=== PATIENT | male | born 1950 | race Caucasian/White ===

== ENCOUNTER 2024-11-29 11:30 | Inpatient (IN) | payer OTHER ==
[2024-11-29 11:58] LABS: HEMATOCRIT 49.2 % (40.0-54.0); HEMOGLOBIN 16.8 g/dL (13.0-18.0); MEAN CORPUSCULAR HEMOGLOBIN 30.5 pg (27.0-32.0); MEAN CORPUSCULAR HGB CONC 34.1 g/dL (31.0-35.0); MEAN PLATELET VOLUME 9.8 fL (6.0-10.0); RED BLOOD CELL COUNT 5.51 M/uL (4.50-6.50); RED CELL DISTRIBUTION WIDTH 14.3 % (11.0-16.0)
[2024-11-29 12:11] LABS: ANION GAP 15.9 mmol/L (5.0-15.0); BLOOD UREA NITROGEN,BUN 29 mg/dL (8-26); BUN/CREATININE RATIO 18.2 (6-25); CALCIUM 9.2 mg/dL (8.5-10.1); CARBON DIOXIDE,CO2 26.3 mmol/L (21.0-32.0); CHLORIDE,CL 102 mmol/L (98-107); CREATININE 1.59 mg/dL (0.70-1.30); ESTIMATED GFR 46 mL/min (>60); GLUCOSE RANDOM 96 mg/dL (74-100); MAGNESIUM 1.9 mg/dL (1.8-2.4); POTASSIUM,K 4.2 mmol/L (3.5-5.1); SODIUM,NA 140 mmol/L (136-145)
[2024-11-29 12:22] LABS: TROPONIN I HIGH SENSITIVITY 18.7 pg/ml (<=60.4)
[2024-11-29 12:24] LABS: INFLUENZA A NAA POSITIVE (NEGATIVE); INFLUENZA B NAA NEGATIVE (NEGATIVE); RESPIRATORY SYNCYTIAL VIR NAA NEGATIVE (NEGATIVE)
[2024-11-29 12:28] LABS: CORONAVIRUS COVID-19 NAA NEGATIVE (NEGATIVE)
[2024-11-29] MEDS: Albuterol/Ipratropium 3.0-0.5 MG/3 ML Neb Soln NEB SCH ×2 (12:38→20:20)
[2024-11-29] MEDS: Albuterol 0.083% 2.5 MG/3 ML Neb Soln NEB ONE (12:56)
[2024-11-29] MEDS ORDERED: Sodium Chloride 0.9% 10 ML Syringe FLUSH PRN (13:01)
[2024-11-29] MEDS ORDERED: Albuterol/Ipratropium 3.0-0.5 MG/3 ML Neb Soln NEB SCH (13:30)
[2024-11-29] MEDS: Sodium Chloride 0.9% 1,000 ML IV SCH (13:56)
[2024-11-29] MEDS: Sodium Chloride 0.9% 50 ML SDV FLUSH ONE (14:38)
[2024-11-29] MEDS: Iopamidol 612 MG/ML 100 ML Bottle IV SCH (14:38)
[2024-11-29] MEDS: methylPREDNISolone Sodium Succinate 40 MG/1 ML SDV IVPUSH ONE (15:36)
[2024-11-29] MEDS ORDERED: predniSONE 10 MG Tab ONE (17:00)
[2024-11-29] MEDS ORDERED: Oseltamivir 75 MG Cap ONE (17:00)
[2024-11-29] MEDS ORDERED: Albuterol 6.7 GM Inhaler INH ONE (17:00)
[2024-11-29] MEDS: Melatonin 3 MG Tab PO SCH (19:09)
[2024-11-29] MEDS: Oseltamivir 75 MG Cap PO SCH (19:09)
[2024-11-29] MEDS: Heparin Sodium 5,000 Units/ML Vial SUBCUT SCH ×2 (19:09→20:20)
[2024-11-29] MEDS: methylPREDNISolone Sodium Succinate 40 MG/1 ML SDV IVPUSH SCH (19:10)
[2024-11-29] MEDS: Carvedilol 3.125 MG Tab PO SCH (22:38)
[2024-11-30] MEDS: Ezetimibe 10 MG Tab PO SCH (07:37)
[2024-11-30] MEDS: Lisinopril 10 MG Tab PO SCH (07:38)
[2024-11-30] MEDS: Fish Oil/Omega-3 Fatty Acids 1 Gm Cap PO SCH (07:38)
[2024-11-30] MEDS: Aspirin 81 MG Tab.EC PO SCH (07:39)
[2024-11-30] MEDS: Nicotine 14 MG/24 Hr Patch TRDERM SCH (07:40)
[2024-11-30] MEDS: Cholecalciferol (Vitamin D3) 10 MCG Tab PO SCH (07:43)
[2024-11-30] MEDS ORDERED: Non-Formulary Medication 1 Each (Flaxseed Oil [Flaxseed] 1,000 MG Capsule) PO SCH (08:00)
[2024-11-30] MEDS ORDERED: Aspirin 81 MG Tab.Chew PO SCH (08:00)
[2024-11-30] MEDS ORDERED: Oseltamivir 30 MG Cap PO SCH (08:00)
[2024-11-30] MEDS: Oseltamivir 75 MG Cap PO SCH (09:44)
[2024-11-30 12:23] VITALS: BP 119/65; PULSE 52
[2024-11-30] MEDS: Nicotine 14 MG/24 Hr Patch ONE (16:25)
[2024-11-30] MEDS ORDERED: Rosuvastatin 20 MG Tab PO SCH (20:00)
== END 2024-11-30 15:00 | disposition home or self-care (01) | DRG 194 ==
LOC: LB.ED 11:30 → LB.MS 17:40
PROVIDERS: ADMIT Surgery; ATTEND Surgery
DX: J10.1 Influenza due to other identified influenza virus with other respiratory manifestations (principal); R09.02 Hypoxemia; F17.210 Nicotine dependence, cigarettes, uncomplicated; J44.1 Chronic obstructive pulmonary disease with (acute) exacerbation; Z98.890 Other specified postprocedural states; Z72.0 Tobacco use; Z99.81 Dependence on supplemental oxygen
CPT/HCPCS: 0241U; 36415; 71045; 71260; 80048; 83735; 83880; 84484; 85027; 85379; 94640; 96361; 96374; 99285-25; A9270-GY; J1644; J2919; J3490; J7030; J7512; J7620; Q9967